=== PATIENT | female | born 1950 | race Caucasian/White ===

== ENCOUNTER 2022-02-15 07:30 | Day surgery (SDC) | payer MEDICARE, OTHER ==
[2022-02-15] VITALS (8 sets, daily range): BP systolic 137–155; BP diastolic 71–81
[~2022-02-15] VITALS: Ht 165.1 cm; Wt 52.6 kg
[2022-02-15] MEDS ORDERED: ceFOXitin 2GM-NS 100mL ADDvant 100 ML IV ONE (07:35)
[2022-02-15] MEDS ORDERED: ringers solution, lacted 1,000 ML IV SCH ×2 (07:35→09:35)
[2022-02-15] MEDS ORDERED: THYR90TA12 PO (08:20)
[2022-02-15 08:49] LABS: BASOPHILS # (AUTO) 0.1 X10'3 (0-0.2); BASOPHILS % (AUTO) 0.8 % (0-1); EOSINOPHILS # (AUTO) 0.1 X10'3 (0-0.9); EOSINOPHILS % (AUTO) 1.5 % (0-6); LYMPHOCYTES # (AUTO) 2.3 X10'3 (1.1-4.8); LYMPHOCYTES % (AUTO) 26.5 % (21-51); MEAN CORPUSCULAR HEMOGLOBIN 30.9 PG (27.0-31.0); MEAN CORPUSCULAR HGB CONC 34.3 g/dL (33.0-36.5); MEAN CORPUSCULAR VOLUME 90.2 FL (78-98); MEAN PLATELET VOLUME 9.6 FL (7.4-10.4); MONOCYTES # (AUTO) 0.9 X10'3 (0-0.9); MONOCYTES % (AUTO) 9.8 % (2-12); NEUTROPHILS # (AUTO) 5.4 X10'3 (1.8-7.7); NEUTROPHILS % (AUTO) 61.4 % (42-75); PRE OP HEMATOCRIT 40.4 % (35.0-45.0); PRE OP HEMOGLOBIN 13.9 g/dL (12.0-16.0); PRE OP PLATELET COUNT 186 X10'3 (140-440); RED BLOOD COUNT 4.48 X10'6 (4.20-5.60)
[2022-02-15] MEDS ORDERED: LIDOcaine 1% 30ml preserv. free vial ONE (09:25)
[2022-02-15] MEDS ORDERED: BUPIVAcaine/PF 2.5 mg/ml (0.25%) 30ml vial ONE (09:26)
[2022-02-15] MEDS ORDERED: proCHLORperazine 10 MG/2 ml inj IV PRN (09:35)
[2022-02-15] MEDS ORDERED: morphine 4 MG/ML inj SYRINge IV PRN (09:35)
[2022-02-15] MEDS ORDERED: ondansetron/PF 4mg/2ml inj IV PRN (09:35)
[2022-02-15] MEDS ORDERED: meperidine/PF 25mg/ml syringe IV PRN ×3 (09:35)
[2022-02-15] MEDS ORDERED: morphine 2 MG/ML inj. syringe IV PRN (09:35)
[2022-02-15] MEDS ORDERED: sevoflurane 250ml liquid IH ONE (09:36)
[2022-02-15] MEDS ORDERED: fentaNYL/PF 50MCG/1 ML 2ML syringe ONE (09:39)
[2022-02-15] MEDS ORDERED: midazolam 1 mg/ML 2ml injection ONE (09:39)
[2022-02-15] MEDS ORDERED: propofol inj 20 ML IV ONE (09:40)
[2022-02-15] MEDS ORDERED: rocuronium 10mg/ml inj IV ONE (09:40)
[2022-02-15] MEDS ORDERED: ondansetron/PF 4mg/2ml inj ONE (10:12)
[2022-02-15] MEDS ORDERED: dexamethasone sod phosphate 4mg/ml inj. ONE (10:13)
[2022-02-15] MEDS ORDERED: sugammadex 200mg/2ml injection IV ONE (10:15)
--- NOTE | 2022-02-15 10:33 | NUR ---
Received from OR via [facility] , accompanied by Anesthesiologist and report given by [facility] Anesthesiologist. PATIENT WAKING UP, DENIES PAIN, V/S WNL, SCD ON , PIV 20G RUCHAPARRITA [place]ague SITES CLOSED CDI TO ABDOMEN. Addendum: 02/15/22 at 1052 by Ihsan Meza RN Amended: Links added.
[2022-02-15] MEDS ORDERED: acetaminophen 325mg tablet PO PRN (10:40)
[2022-02-15] MEDS ORDERED: oxyCODONE/APAP 5-325mg tablet PO PRN (10:40)
[2022-02-15] MEDS ORDERED: ketorolac tromethamine 15mg/ml inj. IV ONE (10:40)
--- NOTE | 2022-02-15 11:38 | NUR ---
ALL DISCHARGE CRITERIA HAS BEEN MET. VSS, PAIN AT A TOLERABLE LEVEL, ABLE TO SAFELY AMBULATE AND TRANSFER SELF. IV TAKEN OUT WITHOUT ANY COMPLICATIONS. ALL DISCHARGE INSTRUCTIONS COVERED WITH PATIENT AND ALL QUESTIONS ANSWERED. PATIENT TAKEN OUT VIA WHEELCHAIR WITH ALL BELONGINGS TO PERSONAL VEHICLE WHERE FAMILY DROVE PATIENT HOME. Addendum: 02/15/22 at 1155 by Ihsan Meza RN Amended: Links added.
== END 2022-02-15 11:38 | disposition home or self-care (01) ==
LOC: PAS 07:30
PROVIDERS: ATTEND Surgery
DX: K35.80 Unspecified acute appendicitis (principal); Z79.899 Other long term (current) drug therapy; Z98.890 Other specified postprocedural states; Z82.49 Family history of ischemic heart disease and other diseases of the circulatory system; Z88.2 Allergy status to sulfonamides; Z88.6 Allergy status to analgesic agent; Z88.8 Allergy status to other drugs, medicaments and biological substances
CPT/HCPCS: 36415; 44970; 82948; 85025; 93005; J0694; J1100; J1885; J2250; J2405; J2704; J3010; J3490; J7030; J7120; Z7506; Z7512; 88304; A4215; A4618